=== PATIENT | male | born 1980 | race Caucasian/White ===

== ENCOUNTER 2023-10-10 05:44 | Emergency (ER) | payer MEDICAID, OTHER ==
[~2023-10-10] VITALS: Ht 182.9 cm; Wt 68.0 kg
[2023-10-10 05:53] VITALS: O2SAT 97
[2023-10-10] MEDS ORDERED: FLUORESCEIN SODIUM 1 MG STRIP ONE (06:36)
[2023-10-10] MEDS: FLUORESCEIN SODIUM 1 MG STRIP OP ONE (06:45)
[2023-10-10] MEDS: TETRACAINE HCL 0.5% OPHT DROP 2 ML BOTTLE OP ONE (06:45)
[2023-10-10] MEDS ORDERED: CIPR2.5D14 RIGHTEYE (07:01)
== END 2023-10-10 07:07 | disposition home or self-care (01) ==
LOC: ER 05:52
DX: H57.89 Other specified disorders of eye and adnexa (principal); Z79.899 Other long term (current) drug therapy; Z59.00 Homelessness unspecified
CPT/HCPCS: A4606; A4663